=== PATIENT | female | born 1985 | race Caucasian/White ===

== ENCOUNTER 2016-05-06 01:55 | Inpatient (IN) | payer OTHER ==
[~2016-05-06] VITALS: Ht 158.8 cm; Wt 72.6 kg
[~2016-05-06 01:55] MED LIST: PROC-4 PO; PROM25SU46 RC
[2016-05-06] MEDS ORDERED: Oxytocin 30 Units/500 mL LR Premix IV ONE (01:58)
[2016-05-06] MEDS ORDERED: Lactated Ringer's 1,000 ML IV PRN (02:43)
[2016-05-06] MEDS ORDERED: Methylergonovine 0.2 mg/mL Inj IM PRN ×2 (02:45→04:30)
[2016-05-06] MEDS ORDERED: Hemorrhage Kit, Post Partum XX ONE ×2 (02:45→04:30)
[2016-05-06] MEDS ORDERED: Sodium Chloride LOK Flush 10 mL Syringe IVFLUSH PRN (02:45)
[2016-05-06] MEDS ORDERED: Carboprost 250 mCg/mL Inj IM PRN ×2 (02:45→04:30)
[2016-05-06] MEDS ORDERED: Oxytocin 10 Unit/mL Inj IM PRN ×2 (02:45→04:30)
[2016-05-06 02:49] LABS: Mean Corpuscular Volume 84.6 fL (81-100)
[2016-05-06] MEDS ORDERED: Lactated Ringer's 1,000 ML IV SCH (04:27)
[2016-05-06] MEDS ORDERED: Oxytocin 30 Units/500 mL LR 30 UNITS in IV Premix 1 EACH IV PRN (04:30)
[2016-05-06] MEDS ORDERED: LANOlin HPA 7 Gm Ointment TOPICAL PRN (04:30)
[2016-05-06] MEDS ORDERED: Benzocaine (Dermoplast) 20% 60 Gm Spray TOPICAL PRN (04:30)
[2016-05-06] MEDS ORDERED: HYDROcodone-APAP 5-325 mg Tablet PO PRN (04:30)
--- NOTE | 2016-05-06 05:30 | HP ---
[address] [address] HISTORY AND PHYSICAL PATIENT: LUCIEN MARES : 1985 MR#: [id number] ADMIT: 05/06/2016 JOB ID: [id number] CHIEF COMPLAINT: Increased contractions at term. HISTORY OF PRESENT ILLNESS: A 31-year-old, 1, para 0, with an EDC of May 04, 2016, presents at term. She was in earlier yesterday evening for a labor check, found to be about a centimeter dilated, has continued to contract consistently through the evening hours. Her fysemv-gn-gyc, who is a labor and delivery nurse, checked her at home when she became more uncomfortable, found her to be anterior lip, and she arrived promptly. She is doing remarkably well with contractions despite not having any pain medication on board. PAST GYNECOLOGIC HISTORY: 1, para 0. LABORATORIES: Blood type O-negative, rubella immune, serology nonreactive. Hepatitis B surface antigen and HIV tests were negative. An A1c was 5.3 at the beginning of . Pap was normal in October 2015. Her gonorrhea and Chlamydia cultures at that time were negative. Antibody screen was negative, with a repeat negative at 29 weeks. A 29 week glucose tolerance test showed a fasting of 78, one hour 127, a two hour of 109. She declined risk testing. Her urine culture showed no growth at the beginning of . She is GBS negative, screened April 03, 2016. ISSUES: 1. LATEX intolerance/allergy. 2. Hypothyroidism, on levothyroxine. 3. History of depression. 4. Rh-negative. 5. Prior low-lying placenta on ultrasound in January 2016, resolved by recheck in March 2016. 6. Episode of nephrolithiasis this . ALLERGIES: LATEX. CURRENT MEDICATIONS: 1. vitamins 1 tablet daily. 2. Levothyroxine 100 mcg daily. HEALTHCARE MAINTENANCE: She has had a flu and a Tdap vaccine this . SOCIAL HISTORY: She is . Works as a nurse. Nonsmoker. Stopped alcohol once . Has previously denied recreational drug use. PAST SURGICAL HISTORY: None. FAMILY HISTORY: Not significant for congenital or defects. PHYSICAL EXAMINATION: Actively laboring woman. Please see nursing notes for vital signs. An IV is being established. heart tracing shows a baseline in the 120s with some variables with contractions, but good recovery. Hematocrit 41.8, hemoglobin 14.8, platelets 259, white count 19.2. Cervical examination performed by myself shows her to be completely dilated +1 station, vertex position, 100% effaced. There is some clear fluid and she reports rupture of membranes about 45 minutes ago. ASSESSMENT: 1. Gravid 1 day past her due date. 2. Active labor, now completely dilated. 3. LATEX intolerance/allergy. 4. Hypothyroidism, on replacement. She has had TSH levels in range throughout her . 5. Rh-negative. 6. Prior low-lying placenta which resolved on a repeat ultrasound in March. 7. Nephrolithiasis episode this . PLAN: Patient went on to deliver. See additional note for details.
--- NOTE | 2016-05-06 05:36 | OP ---
[address] [address] OPERATIVE REPORT PATIENT: LUCIEN MARES : 1985 MR#: [id number] ADMIT: 05/06/2016 JOB ID: [id number] DELIVERY NOTE: DATE OF DELIVERY: 05/06/2016 DELIVERY POSITION: GENESIS. APGARS: 6, 8, and 9 at 1, 5, and 10 minutes. DELIVERY WEIGHT: 7 pounds 6.3 ounces (3354 grams), viable male. UMBILICAL CORD: Normal length and appearance. Three-vessel cord. PLACENTA: Central cord insertion. No evidence of retained fragments. ESTIMATED BLOOD LOSS: 150 cc. ANESTHESIA: 1% lidocaine for repair of lacerations. COMPLICATIONS: Nuchal cord x1. LACERATIONS: Second-degree perineal as well as bilateral upper labial lacerations. NARRATIVE: The patient was found to be complete with a strong urge to push. She pushed effectively bringing the head down. There was a strong perineal tissue which took some time to stretch. Given continued recovery of heart rate and the patient's strong desire to avoid episiotomy, I did not cut such an incision. Head delivered. The nuchal cord was identified and promptly reduced without difficulty. Body and shoulders delivered without issue. Infant was handed up to mother and nursing for additional stimulation and promptly cried and had good color. Cord was clamped after approximately a 3 minute delay. Cord blood collected and sent. Placenta delivered spontaneously with gentle traction on the cord after several more minutes. IV oxytocin was then instituted but bleeding was already rapidly slowing and EBL was only 150 cc. Perineum was inspected and showed bilateral superior labial lacerations as well as a second-degree perineal tear. Labial lacerations were repaired with 4-0 Vicryl after instilling 1% lidocaine, perineal tear was repaired in standard fashion using 2-0 Vicryl after again instilling 1% lidocaine. A rectal exam performed after repairs showed intact sphincter tone and no evidence of buttonholing or through and through tears. Sponge and needle counts were correct after delivery. Patient is in stable condition . She does plan to breast feed. She is Rh negative. I will continue her on her levothyroxine after delivery. [facility]
[2016-05-06] MEDS: Witch Hazel-Glycerin Pads TOPICAL PRN (05:57)
[2016-05-06] MEDS: Multivit-Miner-Folic Acid-Iron Tablet PO SCH (09:49)
[2016-05-07 07:34] LABS: Mean Corpuscular Hemoglobin 29.6 pg (27.0-35.0); Mean Corpuscular Volume 88.3 fL (81-100)
[2016-05-07] MEDS: Multivit-Miner-Folic Acid-Iron Tablet PO SCH (07:52)
[2016-05-07 08:15] VITALS: BP 111/67; PULSE 96; RESP 16
--- NOTE | 2016-05-07 10:16 | DIS ---
[address] [address] DISCHARGE SUMMARY PATIENT: LUCIEN MARES : 1985 MR#: [id number] ADMIT: 05/06/2016 JOB ID: [id number] DIS: DISCHARGE DIAGNOSES: 1. Spontaneous vaginal delivery at term of a 7 pound 6.3 ounce viable male. 2. Second-degree perineal tear. 3. Hypothyroidism, on replacement levothyroxine. 4. LATEX intolerance/allergy. 5. Rh negative. 6. History of depression. 7. Prior nephrolithiasis. DISCHARGE MEDICATIONS: 1. vitamins 1 tablet daily. 2. Levothyroxine 100 mcg daily. 3. Ibuprofen 800 mg q.6 h. p.r.n. pain. 4. Docusate sodium 100 mg p.o. b.i.d. p.r.n. constipation. DISCHARGE INSTRUCTIONS: 1. Follow up with Dr. Alvarado at six weeks. 2. Call for increased bleeding, fever, excessive breast pain or tenderness, excessive constipation, etc. 3. Diet ad treva, and activity ad treva, except pelvic rest for six weeks. HOSPITAL COURSE: The patient is a 31-year-old, now 1, para 1, who presented the day after her due date in active labor. She went on to have an uncomplicated vaginal delivery of a 7 pound 6.3 ounce viable male in GENESIS position with a single nuchal cord. Apgars were 1, 8 and 5 at one, five and 10 minutes, respectively. , she is caring for her infant well. She will be observed through today, as the 's bilirubin is in the high-risk zone. Her bleeding is slowing. She reports her pain controlled with ibuprofen, and her hematocrit dropped to 36.4 from an admit value of 41.8 and hemoglobin 12.2 from an admit value of 14.8. Plan is for discharge home this afternoon if stable, with followup in my office at six weeks. She is requiring only ibuprofen for pain control. I recommended pelvic rest due to a second-degree perineal laceration, repaired.
[2016-05-07] MEDS: Witch Hazel-Glycerin Pads TOPICAL PRN (14:25)
--- NOTE | 2016-05-07 17:37 | PCM.DIOB ---
Obstetrical Disch Instruction Date of Service: May 07, 2016 Dates of Hospitalization Date of Hospital Admission May 06, 2016 at 01:55 Providers Admitting Physician: Nicolas Alvarado MD Primary Care Physician: Nicolas Alvarado MD Attending Physician: Nicolas Alvarado MD Discharge Diagnosis Problems: (1) Encounter for full-term uncomplicated delivery Status: Acute ICD Code: O80 (2) Hypothyroidism Status: Acute ICD Code: E03.9 Diet Discharge Diet: No restrictions Activity Discharge Activity-General: Pelvic Rest for 6 weeks, Activity as energy allows Dressing and Incisional Care Hygiene: May shower Follow Up Plan Follow-up Provider (F9): Nicolas Alvarado MD Follow-up appointment: Weeks (6) Call your provider for: Fever or Chills, Shortness of breath, Heavy vaginal bleeding, Excessive constipation, Red painful breasts Nicolas Alvarado MD May 07, 2016 17:37
[2016-05-07] MEDS ORDERED: IBUP800T28 PO (17:40)
[2016-05-07] MEDS ORDERED: LEVO100T6 PO (17:40)
[2016-05-07] MEDS ORDERED: PREN1TAB25 PO (17:40)
[2016-05-07] MEDS ORDERED: DOCU-41 PO (17:40)
== END 2016-05-07 18:40 | disposition home or self-care (01) | DRG 775 ==
LOC: FBC 01:55
PROVIDERS: ADMIT Family Medicine; ATTEND Family Medicine
PROC: 10E0XZZ Delivery of Products of Conception, External Approach (ICD-10-PCS; principal; 2016-05-06)
PROC: 0KQM0ZZ Repair Perineum Muscle, Open Approach (ICD-10-PCS; 2016-05-06)
PROC: 0UQMXZZ Repair Vulva, External Approach (ICD-10-PCS; 2016-05-06)
DX: O70.1 Second degree perineal laceration during delivery (principal); Z37.0 Single live birth; E03.9 Hypothyroidism, unspecified; O99.283 Endocrine, nutritional and metabolic diseases complicating pregnancy, third trimester; O69.82X0 Labor and delivery complicated by other cord entanglement, without compression, not applicable or unspecified; O71.82 Other specified trauma to perineum and vulva; Z3A.40 40 weeks gestation of pregnancy